=== PATIENT | male | born 1950 | race African-American/Black ===

== ENCOUNTER 2021-03-15 20:23 | Emergency (ER) | payer MEDICARE, OTHER | END 2021-03-15 21:48 | disposition home or self-care (01) | LOC: FER 20:23 | DX: T25.031D Burn of unspecified degree of right toe(s) (nail), subsequent encounter (principal); T25.021D Burn of unspecified degree of right foot, subsequent encounter; I12.0 Hypertensive chronic kidney disease with stage 5 chronic kidney disease or end stage renal disease; E11.22 Type 2 diabetes mellitus with diabetic chronic kidney disease; N18.6 End stage renal disease; Z99.2 Dependence on renal dialysis; Z88.5 Allergy status to narcotic agent; X10.2XXD Contact with fats and cooking oils, subsequent encounter | CPT/HCPCS: 99283 ==